=== PATIENT | male | born 1965 ===

== ENCOUNTER 2018-03-24 14:10 | Emergency (ER) | payer OTHER ==
[2018-03-24 14:20] VITALS: BMI 24.3
--- NOTE | 2018-03-24 15:09 | ED PDOC ---
HPI: General Adult Time Seen by Provider: 03/24/18 15:00 Chief Complaint (Nursing): Dizziness/Lightheaded Chief Complaint (Provider): ear fullness History Per: Patient History/Exam Limitations: language barrier Onset/Duration Of Symptoms: Days (1-2) Current Symptoms Are (Timing): Still Present Severity: Moderate Additional History Per: Patient Additional Complaint(s): pt p/w + 1-2 days onset of dizziness/lightheadedness (more of a dizziness complaint), worse with position changes; pt also noted high pitch buzzing sound coming from his ears b/l; pt states couple of years ago with similar complaint and was told he has Cerumen b/l ears; pt states + mild left ear pain > right; + mild diffuse headache; pt states no fever/chills/sweats, no neck pain, no vision changes, no sore throat, no coughing, no cp/sob/palpitations, no abd pain , no n/v, no numbness/tingling, no urinary/bowel changes, no facial changes, no slurr speech, no gait changes; pt is here for further eval; pt's without other complaints. pt denied fall/trauma/sick contact, no travel PCP: Dr Brown/[facility] Past Medical History Reviewed: Historical Data, Nursing Documentation, Vital Signs Vital Signs: Last Vital Signs Temp 98 F 03/24/18 14:19 Pulse 74 03/24/18 14:19 Resp BP 115/65 03/24/18 14:19 Pulse Ox 98 03/24/18 17:11 - Medical History PMH: Deep Vein Thrombosis, Gastritis, Hypercholesterolemia Denies: Chronic Kidney Disease - Surgical History Surgical History: Endoscopy - Family History Family History: States: Unknown Family Hx - Living Arrangements Living Arrangements: With Family - Social History Current smoker - smoking cessation education provided: No Alcohol: None - Home Medications Home Medications: Ambulatory Orders Medication Instructions Recorded RX: Aspirin [Ecotrin] 1 tab PO DAILY 08/09/16 Docusate [Colace] 100 mg PO DAILY #0 cap 08/19/16 RX: oxyCODONE/Acetaminophen 1 ea PO TID #30 tab 08/19/16 [Percocet 5/325 mg Tab] Metoclopramide HCl [Reglan] 10 mg PO TID PRN #20 tablet 07/14/18 RX: Meclizine [Meclizine*] 25 mg PO Q6 PRN #30 tab 03/24/18 - Allergies Allergies/Adverse Reactions: Allergies Allergy/AdvReac Type Severity Reaction Status Date / Time No Known Allergies Allergy Verified 08/09/16 10:02 Review of Systems ROS Statement: Except As Marked, All Systems Reviewed And Found Negative Constitutional: Negative for: Fever, Weakness Eyes: Negative for: Pain ENT: Positive for: Ear Pain. Negative for: Ear Discharge, Nose Discharge, Throat Pain Cardiovascular: Negative for: Chest Pain, Palpitations, Orthopnea, Light Headedness Respiratory: Negative for: Cough, Shortness of Breath, Hemoptysis Gastrointestinal: Negative for: Nausea, Vomiting, Abdominal Pain, Diarrhea Genitourinary Male: Negative for: Dysuria, Frequency Musculoskeletal: Negative for: Neck Pain, Back Pain Skin: Negative for: Rash Neurological: Positive for: Headache, Dizziness. Negative for: Weakness Psych: Negative for: Anxiety, Depression, Psychosis Physical Exam - Reviewed Nursing Documentation Reviewed: Yes Vital Signs Reviewed: Yes (WNL) - Physical Exam Appears: Positive for: Well, No Acute Distress, Uncomfortable (alert/awake, GCS = 15, oriented x 3, cooperative, follows command with ease, interactive; NAD, mildly uncomfortable) Head Exam: Positive for: ATRAUMATIC, NORMAL INSPECTION, NORMOCEPHALIC Skin: Positive for: Normal Color (cap refill < 1sec, no ulcerations, no petechiae, no rashes, no pallor), Warm, Dry. Negative for: Rash Eye Exam: Positive for: Normal appearance, EOMI, PERRL, Other (wearing eye glasses, no photophobia, sclera anicteric, visual field intact b/l). Negative for: Nystagmus ENT: Positive for: Pharynx Is, TM Is/Are (unable to visualized b/l due to copious hardened cerumen; no otic canal tenderness/fluctuance/masses/ indurations noted; no lesions/ulcerations noted) Neck: Positive for: Normal, Painless ROM, Supple, Trachea Midline. Negative for : Decreased ROM Cardiovascular/Chest: Positive for: Regular Rate, Rhythm, Chest Non Tender, Other (+S1, +S2) Respiratory: Positive for: Normal Breath Sounds, Other (CTA b/l, no w/r/r; no tachypenia). Negative for: Rales Gastrointestinal/Abdominal: Positive for: Normal Exam, Bowel Sounds, Soft, Other (well nourished male, no focal tenderness, no masses/rebound/guarding/ rigidity, no farrar's sign, no mcburney's point tenderness). Negative for: Organomegaly Back: Positive for: Normal Inspection. Negative for: Vertebral Tenderness Extremity: Positive for: Normal ROM, Other (strength 5/5 grossly intact in all limbs, neurovasc intact b/l, + ambulatory) DTR - Knee (R): 2+ DTR - Knee (L): 2+ Neurologic/Psych: Positive for: Alert, hardware assembler II-XII, Oriented, Other (CNII-XII WNL , no facial asymmetries, no slurr speech; NIH stroke scale ~ 0). Negative for: Motor/Sensory Deficits - Laboratory Results Result Diagrams: 03/24/18 16:01 03/24/18 16:01 - ECG O2 Sat by Pulse Oximetry: 98 Pulse Ox Interpretation: Normal - Radiology X-Ray: Viewed By Me, Read By Radiologist - Progress ED Course And Treament: pt is feeling improved 4:55pm - i performed b/l cerumen disempaction and pt tolerated the procedure well; pt felt improved vital signs: stable re-eval TM b/l: improved appearance of b/l otic canal, able to see the right TM , NO effusion/bulging noted; left TM partially visible but much improved, no effusion/bulging noted, no masses noted, no bleeding/discharge noted; no otic tenderness noted pt is made aware of his medical results pt is encouraged using Debrox for ear cleaning, AND NO Q-tips pt is encouraged outpt f/u pt will be discharged home 03/24/2018 PROCEDURE: CT HEAD WITHOUT CONTRAST. HISTORY: dizziness x 1 day COMPARISON: None available. TECHNIQUE: Axial computed tomography images were obtained through the head/brain without intravenous contrast. Radiation dose: Total exam DLP = 847.18 mGy-cm. This CT exam was performed using one or more of the following dose reduction techniques: Automated exposure control, adjustment of the mA and/or kV according to patient size, and/or use of iterative reconstruction technique. FINDINGS: HEMORRHAGE: No no acute parenchymal, subarachnoid or extra-axial hemorrhage. BRAIN: No evidence of large acute infarct. Note however the possibility of a small hyperacute infarct cannot be excluded. Mild age-appropriate volume loss. VENTRICLES: No obstructive hydrocephalus. CALVARIUM: Unremarkable. PARANASAL SINUSES: Minor mucosal thickening seen within few ethmoid air cells. Minimal mucosal thickening present in the sphenoid sinus MASTOID AIR CELLS: Unremarkable as visualized. No inflammatory changes. OTHER FINDINGS: None. IMPRESSION: No acute intracranial hemorrhage. Mild generalized volume loss. Re-evaluation Time: 15:20 Condition: Re-examined Medical Decision Making Medical Decision Making: Impression: headache, dizziness, ear pain/buzzing i have consider all the differential diagnosis regarding pt's chief medical complaints/clinical findings, including but are not limited to: unlikely cva, likely vertigo; cerumen impaction Plan: headache, dizziness, ear pain/buzzing -- labs -- ct -- observe, supportive care Time: [address] RESULTS FINDINGS: HEMORRHAGE: No no acute parenchymal, subarachnoid or extra-axial hemorrhage. BRAIN: No evidence of large acute infarct. Note however the possibility of a small hyperacute infarct cannot be excluded. Mild age-appropriate volume loss. VENTRICLES: No obstructive hydrocephalus. CALVARIUM: Unremarkable. PARANASAL SINUSES: Minor mucosal thickening seen within few ethmoid air cells. Minimal mucosal thickening present in the sphenoid sinus MASTOID AIR CELLS: Unremarkable as visualized. No inflammatory changes. OTHER FINDINGS: None. IMPRESSION: No acute intracranial hemorrhage. Mild generalized volume loss. Time: 1700 --Cerumen disimpaction of bilateral ears performed (see procedure note). Procedures - Additional Procedures Progress: Time: 1700 Cerumen disimpaction of bilateral ears --Verbal consent obtained from patient. --Curette instrument used to remove cerumen after 5 drops of Debrox was applied to both ears. --Removed a significant amount of otic cerumen bilaterally. --Upon re-eval, bilateral TMs are visible. Canals are slightly erythematous with no bloody discharge or tenderness noted. --Patient tolerated procedure well. Reports improvement in hearing. Disposition - Clinical Impression Clinical Impression: Dizziness, Cerumen impaction - Patient ED Disposition Is Patient to be Admitted: No Counseled Patient/Family Regarding: Studies Performed, Diagnosis, Need For Followup, Rx Given - Disposition Referrals: [facility] [Outside] [facility] [Outside] [facility] [Outside] Lennox Lopez MD [Staff Provider] - PCP,NO [Non-Staff] - Disposition: Routine/Home Disposition Time: 17:05 Condition: STABLE Additional Instructions: Make sure to see your doctor in 1-2 days DRINK PLENTY OF FLUIDS DONT USE q-tips to clean your ears USE DEBROX 3-5 drops b/l ears daily for ear cleaning take your medications as prescribed RETURN TO ED IF worse pain, cant breath, persistent vomiting, high fever >101- 102 for hours, altered behavior, slurr speech, facial changes, focal weakness ( arm/leg or both), unable to urinate, heavy/persistent bleeding, passing out, chest pain, or other medical emergencies Prescriptions: RX: Meclizine [Meclizine*] 25 mg PO Q6 PRN #30 tab PRN Reason: Dizziness Metoclopramide HCl [Reglan] 10 mg PO TID PRN #20 tablet PRN Reason: Nausea/Vomiting Instructions: Ear Wax Impaction, Vertigo (a Type of Dizziness) (DC) Forms: [facility] ([employer]) Print Language: SAMMARINESE
[2018-03-24] MEDS ORDERED: Carbamide Peroxide OTIC SOLUTION AU ONE (15:30)
[2018-03-24 16:04] LABS: BASO # 0.1 K/uL (0.0-0.2); BASO % 0.9 % (0.0-2.0); EOS # 0.6 K/uL (0.0-0.7); EOS % 8.4 % (0.0-4.0); HEMOGLOBIN 13.6 g/dL (12.0-18.0); LYMPH # 1.6 K/uL (1.0-4.3); LYMPH % 21.7 % (20.0-40.0); MEAN CORPUSCULAR HEMOGLOBIN 29.6 pg (27.0-31.0); MONO # 0.8 K/uL (0.0-0.8); MONO % 10.5 % (0.0-10.0); NEUT # 4.2 K/uL (1.8-7.0); NEUT % 58.5 % (50.0-75.0); RBC 4.58 Mil/uL (4.40-5.90); RED CELL DISTRIBUTION WIDTH 13.4 % (11.5-14.5); WHITE BLOOD COUNT 7.2 K/uL (4.8-10.8)
--- NOTE | 2018-03-24 16:06 | CT ---
Date of service: 03/24/2018 PROCEDURE: CT HEAD WITHOUT CONTRAST. HISTORY: dizziness x 1 day COMPARISON: None available. TECHNIQUE: Axial computed tomography images were obtained through the head/brain without intravenous contrast. Radiation dose: Total exam DLP = 847.18 mGy-cm. This CT exam was performed using one or more of the following dose reduction techniques: Automated exposure control, adjustment of the mA and/or kV according to patient size, and/or use of iterative reconstruction technique. FINDINGS: HEMORRHAGE: No no acute parenchymal, subarachnoid or extra-axial hemorrhage. BRAIN: No evidence of large acute infarct. Note however the possibility of a small hyperacute infarct cannot be excluded. Mild age-appropriate volume loss. VENTRICLES: No obstructive hydrocephalus. CALVARIUM: Unremarkable. PARANASAL SINUSES: Minor mucosal thickening seen within few ethmoid air cells. Minimal mucosal thickening present in the sphenoid sinus MASTOID AIR CELLS: Unremarkable as visualized. No inflammatory changes. OTHER FINDINGS: None. IMPRESSION: No acute intracranial hemorrhage. Mild generalized volume loss.
[2018-03-24 16:20] LABS: ALB/GLOB RATIO 1.2 (1.0-2.1); ALT/SGPT 31 U/L (21-72); AST/SGOT 28 U/L (17-59); BLOOD UREA NITROGEN 17 mg/dl (9-20); CALCIUM 9.1 mg/dL (8.4-10.2); GFR AFRICAN-AMERICAN > 60; GFR NON-AFRICAN AMERICAN > 60
[2018-03-24 17:24] VITALS: BP 109/67; PULSE 64; RESP 18; TEMP 98.4; O2SAT 99
== END 2018-03-24 18:05 | disposition home or self-care (01) ==
LOC: H.ER 14:10
DX: R42 Dizziness and giddiness (principal); H61.23 Impacted cerumen, bilateral; E78.00 Pure hypercholesterolemia, unspecified
CPT/HCPCS: 69210; 70450; 80053; 84443; 85025; 96374; 99285; J2765